=== PATIENT | female | born 1985 | race Caucasian/White ===

== ENCOUNTER 2021-04-10 21:49 | Emergency (ER) | payer MEDICAID, OTHER ==
[~2021-04-10] VITALS: Ht 162.6 cm; Wt 59.0 kg
[~2021-04-10 21:49] MED LIST: AMPH30TA2 PO; CARV25TA PO; CARV25TA12 PO; CLON2TAB PO; FERR325T18 PO; FURO40TA6 PO; HYDR200T72 PO; LEVO50TA PO; LISI-167 PO; MUPI22OI2 EXT; POTA10CA PO
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
[2021-04-10] MEDS ORDERED: IBUPROFEN 800 MG TABLET ONE (22:54)
[2021-04-10] MEDS ORDERED: LORazepam 1MG TABLET ONE (22:55)
[2021-04-10] MEDS: IBUPROFEN 800 MG TABLET PO ONE ×2 (22:59→23:00)
[2021-04-10] MEDS ORDERED: LORazepam 1MG TABLET PO ONE (23:00)
[2021-04-10] MEDS ORDERED: ACETAMINOPHEN 500 MG TABLET ONE (23:18)
[2021-04-11 00:03] VITALS: BP 149/97
[2021-04-11] MEDS ORDERED: ACETAMINOPHEN 500 MG TABLET ONE (00:07)
[2021-04-11] MEDS ORDERED: hydrOXyzine 50MG TABLET ONE (00:07)
[2021-04-11] MEDS ORDERED: ACETAMINOPHEN 500 MG TABLET PO ONE (00:30)
== END 2021-04-11 00:16 | disposition home or self-care (01) ==
LOC: ED 23:15
DX: S06.0X0A Concussion without loss of consciousness, initial encounter (principal); S05.11XA Contusion of eyeball and orbital tissues, right eye, initial encounter; I10 Essential (primary) hypertension; Y04.8XXA Assault by other bodily force, initial encounter; Y93.89 Activity, other specified; Y92.89 Other specified places as the place of occurrence of the external cause; Y99.8 Other external cause status
CPT/HCPCS: 70450; 70486; 99285